=== PATIENT | female | born 1985 ===

== ENCOUNTER 2016-11-06 17:25 | Inpatient (IN) ==
[2016-11-06] MEDS ORDERED: ONDANSETRON 4 MG/2 ML VIAL IV PRN (18:46)
[2016-11-06] MEDS: oxyCODONE/ACETAMINOPHEN 5-325 MG TABLET PO PRN (19:02)
[2016-11-06] MEDS: PIPERACILLIN/TAZOBACTAM 3,375 MG in SODIUM CHLORIDE 0.9% 100 ML IV SCH (19:02)
[2016-11-06 20:37] LABS: Basophils % 0.4 % (0.0-0.8); Eosinophils # 0.2 10*3/uL (0.0-0.87); Hematocrit 33.4 VOL% (35.7-47.0); Hemoglobin 11.3 GM/DL (12.0-16.0); Immature Granulocytes % 0.8 %; Immature Granulocytes Absolute 0.06 #; Lymphocytes # 2.2 10*3/uL (1.4-4.0); Lymphocytes % 27.7 % (21.3-54.2); Mean Corpuscular HGB Conc 33.8 GM/DL (32-36); Mean Corpuscular Hemoglobin 31 PG (27-34); Mean Corpuscular Volume 90.8 FL (87-102); Mean Platelet Volume 9.6 FL (9.6-12.0); Monocytes # 0.6 10*3/uL (0.11-0.8); Neutrophils # 4.8 10*3/uL (1.4-7.4); Neutrophils % 61.1 % (38.7-73.9); Platelet Count 331 T/CUMM (130-400); Red Blood Count 3.68 MC/CUMM (3.8-5.5); Red Cell Distribution Width 13.3 % (9.3-17.3); White Blood Count 7.8 T/CUMM (4-12)
[2016-11-06 21:01] LABS: Calcium 8.1 MG/DL (8.5-10.1); Osmolality,Calculated 275.7 MOS/KG (273-304); Potassium 4.2 MMOL/L (3.5-5.1)
[2016-11-06] MEDS: MEPERIDINE 50 MG/1 ML VIAL IM PRN (21:21)
[2016-11-07 00:10] LABS: Apearance,Urine CLEAR (Clear); Bacteria,Urine Occasional /HPF (Few); Bilirubin,Urine Negative (Negative); Blood, Urine Small mg/dL (Negative); Glucose,Urine (UA) Negative (Negative); Ketones,Urine Negative (Negative); Mucus,Urine Occasional /LPF (Occasional); Nitrite,Urine Negative (Negative); Protein,Urine Negative; RBC,Urine 1 /HPF (0-4); Squamous Epithelial Cell,Urine Occasional /HPF (0-10); Urine Color Straw (Yellow); Urine Specific Gravity 1.008 (1.001-1.035); Urine Urobilinogen < 2.0 EU/DL (0.2-1.0); WBC,Urine 2 /HPF (0-6)
[2016-11-07] MEDS: PIPERACILLIN/TAZOBACTAM 3,375 MG in SODIUM CHLORIDE 0.9% 100 ML IV SCH ×3 (03:26→18:31)
[2016-11-07] MEDS: oxyCODONE/ACETAMINOPHEN 5-325 MG TABLET PO PRN ×3 (07:33→18:30)
--- NOTE | 2016-11-07 09:18 | OB/GYN History & Physical ---
History of Present Illness Chief complaint: Left labial abscess History of present illness: Ms. Mensah is a 31 year old female Multi parous female who presents with a week history of increasing swelling of the left labia. She presented to the office with severe pelvic pain and discomfort and no evidence of any discharge. She stated she was seen at the [facility] placed on p.o. antibiotics but did not get any relief. At this point time she is without fever chills, No evidence of any discharge or drainage, but severe perineal pain. In light of these findings she was admitted for IV antibiotics with the possibility of an I&D at a later date. Home Medications Medication Instructions Recorded Confirmed Type No Known Home Medications [No 11/06/16 11/06/16 History Known Home Medications] Allergies Allergy/AdvReac Type Severity Reaction Status Date / Time [facility] Allergy Unknown/Unable Verified 11/06/16 18:25 to obtain Medical,Surgical,& Family Hx - Surgical History Thoracic Surgeries: Patient denies;: Organ Transplant - Social History Smoking Status: Never smoker Frequency of Alcohol Use: None Type of Drug Use: None Exam [employer] - Constitutional Vitals: Vital Signs Temp Pulse Resp BP Pulse Ox 11/07/16 07:04 97.9 F 60 18 101/56 98 11/07/16 06:10 18 11/07/16 04:30 97.9 F 59 L 16 105/63 95 11/07/16 00:05 97.9 F 66 16 103/57 95 11/06/16 19:35 97.9 F 61 16 115/62 91 L 11/06/16 18:17 97.8 F 62 16 106/56 98 General appearance: mild distress - Antepartum / Post Antepartum Exam Vulva: left: normal (Left edematous swollen indurated left labia) - Head Head exam: Present: normal inspection - Eye Eye exam: Present: EOMI Pupils: Present: VINCENT - ENT ENT exam: Present: normal exam - Neck Neck exam: Present: normal inspection - Respiratory Respiratory exam: Present: clear to auscultation bilaterally - Breast Breasts: as per HPI, mastodynia - Cardiovascular Cardiovascular exam: Present: regular rate and rhythm - GI/Abdominal GI/Abdominal exam: Present: normal bowel sounds, soft - Extremities Exam Extremities exam: Present: normal inspection - Back Exam Back exam: Present: normal inspection - Neurological Exam Neurological exam: Present: alert, oriented X3 - Psychiatric Psychiatric exam: Present: normal affect - Skin Skin exam: Present: normal color Assessment and Plan (1) Labial abscess Status: Acute Assessment and plan: IV antibiotics using Zosyn, wait until there is an area of small amount of drainage for culture, possibility of I&D in the a.m. Current Visit: Yes Results - Labs CBC & BMP: 11/06/16 19:58 11/06/16 19:58
[2016-11-07] MEDS: MEPERIDINE 50 MG/1 ML VIAL IM PRN (20:35)
[2016-11-08] MEDS: PIPERACILLIN/TAZOBACTAM 3,375 MG in SODIUM CHLORIDE 0.9% 100 ML IV SCH ×3 (03:40→20:00)
[2016-11-08] MEDS: oxyCODONE/ACETAMINOPHEN 5-325 MG TABLET PO PRN ×4 (03:44→23:46)
[2016-11-08] MEDS ORDERED: LIDOCAINE 2% 5 ML VIAL ONE (10:30)
[2016-11-08] MEDS ORDERED: ONDANSETRON 4 MG/2 ML VIAL ONE ×2 (10:30→11:14)
[2016-11-08] MEDS ORDERED: PROPOFOL 200 MG/20 ML VIAL IV ONE ×2 (10:30→11:13)
[2016-11-08] MEDS ORDERED: ceFAZolin 1,000 MG VIAL ONE (10:47)
--- NOTE | 2016-11-08 11:01 | Operative Note ---
Date of procedure: 11/08/16 Procedure: Preoperative diagnosis: [] Left labial abscess Postoperative diagnosis: Same Anesthesia:[] General Estimated blood loss: [] Negligible Surgeon: Dr. Mims Findings: [] Indurated fluctuant left labial abscess Complications: None Procedure: I&D of labial abscess Patient was taken to the operation demonstration general anesthesia placed supine position perineum was prepped and draped and prepped made usual manner for major surgery. Small incision was made on the cephalad portion of the labia. Pustular thickened material was removed and expressed from the labia. Hemostat was then used to break up the loculated pustular material. Using a syringe filled with Ancef this was irrigated into the small opening. Cultures was obtained prior to performing this procedure. Quarter inch iodoform gauze was then placed inside the opening of the labial abscess. She tolerated this well with the next pain at room to recovery in stable condition [] Surgeon / Physician: Patrick Mims Results - Labs CBC & BMP: 11/06/16 19:58 11/06/16 19:58 Discharge Plan - Discharge Medications No Action No Known Home Medications [No Known Home Medications] - Follow Up or Referral - Forms/Instructions
[2016-11-08] MEDS ORDERED: fentaNYL 100 MCG/2 ML VIAL ONE (11:14)
[2016-11-08] MEDS ORDERED: SEVOFLURANE 1 UNIT/15 MINUTE INH ONE (11:14)
[2016-11-08] MEDS ORDERED: MIDAZOLAM 2 MG/2 ML VIAL ONE (11:14)
[2016-11-08] MEDS ORDERED: ONDANSETRON 4 MG/2 ML VIAL IV PRN (11:17)
[2016-11-08] MEDS: HYDROmorphone 2 MG/1 ML VIAL IV PRN ×4 (11:24→11:51)
[2016-11-08 11:27] LABS: Basophils % 0.4 % (0.0-0.8); Eosinophils # 0.1 10*3/uL (0.0-0.87); Eosinophils % 1.8 % (0.00-10.9); Hematocrit 34.3 VOL% (35.7-47.0); Hemoglobin 11.6 GM/DL (12.0-16.0); Immature Granulocytes % 0.6 %; Immature Granulocytes Absolute 0.03 #; Lymphocytes # 1.9 10*3/uL (1.4-4.0); Lymphocytes % 34.2 % (21.3-54.2); Mean Corpuscular HGB Conc 33.8 GM/DL (32-36); Mean Corpuscular Hemoglobin 31 PG (27-34); Mean Corpuscular Volume 91.2 FL (87-102); Mean Platelet Volume 9.3 FL (9.6-12.0); Monocytes # 0.4 10*3/uL (0.11-0.8); Monocytes % 7.8 % (1.7-12.7); Neutrophils % 55.2 % (38.7-73.9); Platelet Count 323 T/CUMM (130-400); Red Blood Count 3.76 MC/CUMM (3.8-5.5); Red Cell Distribution Width 13.2 % (9.3-17.3); White Blood Count 5.4 T/CUMM (4-12)
[2016-11-08] MEDS ORDERED: LACTATED RINGERS 1,000 ML IV SCH (11:30)
--- NOTE | 2016-11-08 15:05 | Anesthesia Post-Op ---
Anesthesia Post OP - Post Ansesthetic Evaluation Patient seen in post op: Yes Resp: within normal limits CV: within normal limits Mental: within normal limits Temp: within normal limits Cdva-Ar-Pjodcodnb: within normal limits Nausea and Vomiting: within normal limits Pain: within normal limits
[2016-11-09] MEDS: PIPERACILLIN/TAZOBACTAM 3,375 MG in SODIUM CHLORIDE 0.9% 100 ML IV SCH ×2 (03:25→11:38)
[2016-11-09] MEDS: oxyCODONE/ACETAMINOPHEN 5-325 MG TABLET PO PRN ×2 (04:18→09:31)
[2016-11-09 05:40] LABS: Basophils % 0.7 % (0.0-0.8); Eosinophils # 0.2 10*3/uL (0.0-0.87); Eosinophils % 2.5 % (0.00-10.9); Hematocrit 33.4 VOL% (35.7-47.0); Hemoglobin 11.3 GM/DL (12.0-16.0); Immature Granulocytes % 0.3 %; Immature Granulocytes Absolute 0.02 #; Lymphocytes # 2.3 10*3/uL (1.4-4.0); Lymphocytes % 38.1 % (21.3-54.2); Mean Corpuscular HGB Conc 33.8 GM/DL (32-36); Mean Corpuscular Hemoglobin 31 PG (27-34); Mean Corpuscular Volume 91.8 FL (87-102); Mean Platelet Volume 9.5 FL (9.6-12.0); Monocytes # 0.5 10*3/uL (0.11-0.8); Neutrophils # 3.1 10*3/uL (1.4-7.4); Neutrophils % 50.4 % (38.7-73.9); Platelet Count 298 T/CUMM (130-400); Red Blood Count 3.64 MC/CUMM (3.8-5.5); Red Cell Distribution Width 13.2 % (9.3-17.3); White Blood Count 6.1 T/CUMM (4-12)
[2016-11-09] MEDS: MEPERIDINE 50 MG/1 ML VIAL IM PRN (11:57)
--- NOTE | 2016-11-09 12:31 | Discharge Summary ---
Hospital Course - Hospital Course Hospital Course: Patient admitted on 07 November with a large left labial abscess. She was placed on IV antibiotics and ice packs for 24 hours. Small amount of drainage at the head of the cephalic portion of the labia on the left side. On November 08 she was taken to surgery where a small incision was made this area was irrigated with Ancef and the loculated areas of abscess were then broken up this area was drained iodoform gauze was placed inside. 24 hours as patient is ambulating well voicing desire to be discharged. The gauze was removed she will be discharged and with antibiotics and also continue with sits baths while she is at home. She returned back to her office in 2 weeks Diagnosis - Discharge Diagnosis (1) Labial abscess Status: Acute Discharge Plan - Discharge Data Disposition: Disch To Home/Self Care Condition at Discharge: Stable Discharge Diet: advance to your usual diet Activity: increase activity as tolerated Hygiene: may shower, other (Sitz baths) Weight Bearing at Discharge: full weight bearing Driving: no restrictions Contact your physician if you experience:: fever over 101, Bleeding - Discharge Medications New oxyCODONE/ACETAMINOPHEN 5-325 [Percocet 5-325] 1 tablet PO Q6H #30 tablet cephALEXin [Keflex] 500 mg PO Q6HR #20 capsule - Follow Up or Referral Follow Up: Patrick Mims MD [Physician] - 2 Weeks - Forms/Instructions Exam - Constitutional Vitals: Period Temp Pulse Resp BP Sys/Keita Pulse Ox Last 24 Hr 96.9 F-98.2 F 50-78 16-20 93-132/54-86 94-99 Discharge Results Procedures and tests throughout hospitalization: Pending Orders 11/08/16 Abscess Culture Routine Anaerobic Culture Routine Labs on day of discharge: Labs from last 24 hours 11/09/16 05:18 WBC 6.1 RBC 3.64 L Hgb 11.3 L Hct 33.4 L MCV 91.8 MCH 31 MCHC 33.8 RDW 13.2 Plt Count 298 MPV 9.5 L Neut % (Auto) 50.4 Lymph % (Auto) 38.1 [place] % (Auto) 8.0 Eos % (Auto) 2.5 Baso % (Auto) 0.7 Neut # (Auto) 3.1 Lymph # (Auto) 2.3 [place] # (Auto) 0.5 Eos # (Auto) 0.2 Baso # (Auto) 0.0 Immature Gran % 0.3 Nucleated RBC % 0.0 Immature Gran # 0.02 Nucleated RBCs # 0.00 Immature Plt Fraction 0.0 Preliminary micro results at discharge 11/08/16 Unknown Abscess Culture - Preliminary Groin - Left Gram Positive Cocci DS: Provider Date of admission: 11/06/16 17:45 Primary care physician: Mark Mendoza MD Attending physician on admission: Patrick Mims MD Discharging clinician: Patrick Mims MD
[2016-11-09 16:00] VITALS: BP 115/71
== END 2016-11-09 18:25 | disposition home or self-care (01) | DRG 747 ==
LOC: N.3E 17:45
PROVIDERS: ADMIT Obstetrics & Gynecology; ATTEND Obstetrics & Gynecology

== ENCOUNTER 2017-11-28 07:18 | Inpatient (IN) ==
[2017-11-28] MEDS ORDERED: ONDANSETRON 4 MG/2 ML VIAL IV PRN (08:03)
[2017-11-28] MEDS ORDERED: LACTATED RINGERS 1,000 ML IV ONE (08:05)
[2017-11-28] MEDS: OXYTOCIN/LR 20 UNIT/1,000 ML BAG IV SCH ×2 (08:19→17:52)
[2017-11-28 08:43] LABS: Basophils % 0.1 % (0.0-0.8); Eosinophils % 0.4 % (0.00-10.9); Hematocrit 28.5 VOL% (35.7-47.0); Hemoglobin 9.5 GM/DL (12.0-16.0); Immature Granulocytes % 0.5 %; Immature Granulocytes Absolute 0.04 #; Lymphocytes # 1.2 10*3/uL (1.4-4.0); Lymphocytes % 14.8 % (21.3-54.2); Mean Corpuscular HGB Conc 33.3 GM/DL (32-36); Mean Corpuscular Hemoglobin 30 PG (27-34); Mean Corpuscular Volume 88.8 FL (87-102); Mean Platelet Volume 10.4 FL (9.6-12.0); Monocytes # 0.5 10*3/uL (0.11-0.8); Monocytes % 6.3 % (1.7-12.7); Neutrophils # 6.2 10*3/uL (1.4-7.4); Neutrophils % 77.9 % (38.7-73.9); Platelet Count 241 T/CUMM (130-400); Red Blood Count 3.21 MC/CUMM (3.8-5.5); Red Cell Distribution Width 14.6 % (9.3-17.3); White Blood Count 7.9 T/CUMM (4-12)
[2017-11-28 08:58] LABS: INR 0.9; PT Patient Result 9.8 SECS; Partial Thromboplastin Time 32.1 SECS (0-40)
[2017-11-28] MEDS: hydrALAZINE 20 MG/1 ML VIAL IV PRN ×2 (09:08→09:17)
[2017-11-28 09:10] LABS: Alanine Aminotransferase 12 U/L (13-56); Albumin 2.1 G/DL (3.4-5.0); Alkaline Phosphatase 162 U/L (45-117); Aspartate Amino Transferase 12 U/L (0-37); Bilirubin,Total < 0.39 MG/DL (0.2-1.0); Blood Urea Nitrogen 8 MG/DL (7-18); Calcium 8.1 MG/DL (8.5-10.1); Glucose 70 MG/DL (74-106); Sodium 139 MMOL/L (136-145); Total Protein 6.2 G/DL (6.4-8.3)
[2017-11-28 09:11] LABS: Osmolality,Calculated 272.5 MOS/KG (273-304); Potassium 3.7 MMOL/L (3.5-5.1)
[2017-11-28 09:29] LABS: Hepatitis B Surface Ag Quant 0.21 Index; Hepatitis B Surface Ag Result Negative (Negative)
[2017-11-28] MEDS ORDERED: ePHEDrine 50 MG/ML AMP IV PRN (09:31)
[2017-11-28] MEDS ORDERED: hydrOXYzine HCL 25 MG/1 ML VIAL IM PRN (09:31)
[2017-11-28] MEDS ORDERED: ONDANSETRON 4 MG/2 ML VIAL IV ONE (09:31)
[2017-11-28] MEDS ORDERED: FAMOTIDINE 20 MG/2 ML VIAL IV ONE (09:31)
[2017-11-28] MEDS ORDERED: diphenhydrAMINE 50 MG/1 ML VIAL IV PRN ×2 (09:31)
[2017-11-28] MEDS ORDERED: NALOXONE 0.4 MG/ML VIAL IV PRN (09:31)
[2017-11-28] MEDS ORDERED: PROMETHAZINE 25 MG/1 ML VIAL IM ONE (09:31)
[2017-11-28] MEDS ORDERED: CITRIC ACID/SODIUM CITRATE 30 ML UDCUP PO ONE (09:31)
[2017-11-28] MEDS: LACTATED RINGERS 1,000 ML IV SCH ×2 (09:55→13:14)
[2017-11-28] MEDS ORDERED: fentaNYL 2 MCG/ROPIV 0.2% EPID 100 ML EPIDURAL SCH (10:00)
[2017-11-28] MEDS ORDERED: LABETALOL 100 MG TABLET PO SCH (10:30)
[2017-11-28 13:02] LABS: Apearance,Urine CLEAR (Clear); Bacteria,Urine Occasional /HPF (Few); Bilirubin,Urine Negative (Negative); Blood, Urine Negative (Negative); Glucose,Urine (UA) Negative (Negative); Ketones,Urine 5 mg/dL (Negative); Nitrite,Urine Negative (Negative); Protein,Urine Negative; RBC,Urine 1 /HPF (0-4); Squamous Epithelial Cell,Urine Occasional /HPF (0-10); Urine Color Straw (Yellow); Urine Specific Gravity 1.004 (1.001-1.035); Urine Urobilinogen < 2.0 EU/DL (0.2-1.0); WBC,Urine 1 /HPF (0-6)
[2017-11-28] MEDS ORDERED: ACETAMINOPHEN 500 MG TABLET PO PRN (13:09)
[2017-11-28] MEDS ORDERED: LIDOCAINE 1% 50 ML VIAL ONE ×2 (14:10→15:39)
[2017-11-28] MEDS ORDERED: CARBOPROST TROMETHAMINE 250 MCG/ML AMP IM ONE (15:40)
[2017-11-28] MEDS ORDERED: BUTORPHANOL 2 MG/ML VIAL ONE (15:40)
[2017-11-28] MEDS ORDERED: miSOPROStol 200 MCG TABLET ONE (15:40)
[2017-11-28] MEDS ORDERED: METHYLERGONOVINE 0.2 MG/1 ML AMP ONE (15:40)
[2017-11-28] MEDS ORDERED: OXYTOCIN 10 UNIT/ML VIAL ONE (16:14)
[2017-11-28] MEDS ORDERED: RHO(D) IMMUNE GLOBULIN 300 MCG SYRINGE IM ONE (18:43)
[2017-11-28] MEDS ORDERED: oxyCODONE/ACETAMINOPHEN 5-325 MG TABLET PO PRN (18:43)
[2017-11-28] MEDS ORDERED: ACETAMINOPHEN/CODEINE 300-30 MG TABLET PO PRN (18:43)
[2017-11-28] MEDS ORDERED: LANOLIN 50% CREAM 0.3 OZ TUBE TOP PRN (18:43)
[2017-11-28] MEDS ORDERED: BISACODYL 10 MG SUPP RECTAL PRN (18:43)
[2017-11-28] MEDS ORDERED: HYDROCORTISONE 2.5% RECTAL CREAM 30 GM TUBE TOP PRN (18:43)
[2017-11-28] MEDS ORDERED: WITCH HAZEL PADS 100/JAR TOP PRN (18:43)
[2017-11-28] MEDS ORDERED: ACETAMINOPHEN 325 MG TABLET PO PRN (18:43)
[2017-11-28] MEDS ORDERED: DIPH/TET/ACEL PERT BOOSTER VACCINE 0.5 ML VIAL IM ONE (18:43)
[2017-11-28] MEDS ORDERED: BENZOCAINE 20%/MENTHOL 0.5% SPRAY 56 GM CAN TOP PRN (18:43)
[2017-11-28] MEDS ORDERED: MEASLES/MUMPS/RUBELLA VACCINE 0.5 ML VIAL SUBCUT ONE (18:43)
[2017-11-28] MEDS: IBUPROFEN 800 MG TABLET PO PRN (19:58)
[2017-11-28] MEDS: DOCUSATE SODIUM 100 MG CAPSULE PO SCH (20:00)
[2017-11-28] MEDS: FERROUS SULFATE 325 MG TABLET PO SCH (21:19)
[2017-11-29] MEDS ORDERED: ONDANSETRON 4 MG/2 ML VIAL ONE (00:41)
[2017-11-29] MEDS ORDERED: ONDANSETRON 4 MG/2 ML VIAL IV PRN (00:41)
[2017-11-29 06:51] LABS: Basophils % 0.1 % (0.0-0.8); Eosinophils % 0.1 % (0.00-10.9); Hematocrit 20.6 VOL% (35.7-47.0); Immature Granulocytes % 0.6 %; Immature Granulocytes Absolute 0.05 #; Lymphocytes # 1.6 10*3/uL (1.4-4.0); Lymphocytes % 17.5 % (21.3-54.2); Mean Corpuscular Hemoglobin 29 PG (27-34); Mean Corpuscular Volume 86.6 FL (87-102); Mean Platelet Volume 11.3 FL (9.6-12.0); Monocytes # 0.6 10*3/uL (0.11-0.8); Monocytes % 6.1 % (1.7-12.7); NRBC # 0.02 10*3/uL; Neutrophils # 6.8 10*3/uL (1.4-7.4); Neutrophils % 75.6 % (38.7-73.9); Red Cell Distribution Width 14.9 % (9.3-17.3)
[2017-11-29 06:54] LABS: Platelet Count 161 T/CUMM (130-400); Red Blood Count 2.38 MC/CUMM (3.8-5.5)
[2017-11-29] MEDS: DOCUSATE SODIUM 100 MG CAPSULE PO SCH ×2 (09:44→21:27)
[2017-11-29] MEDS: FERROUS SULFATE 325 MG TABLET PO SCH ×2 (09:45→21:27)
[2017-11-29] MEDS: IBUPROFEN 800 MG TABLET PO PRN (10:41)
[2017-11-29] MEDS: oxyCODONE/ACETAMINOPHEN 5-325 MG TABLET PO PRN ×2 (15:56→23:46)
[2017-11-30] MEDS ORDERED: oxyCODONE/ACETAMINOPHEN 5-325 MG TABLET PO PRN (04:01)
[2017-11-30] MEDS: oxyCODONE/ACETAMINOPHEN 5-325 MG TABLET PO PRN ×2 (04:08→11:31)
[2017-11-30] MEDS: FERROUS SULFATE 325 MG TABLET PO SCH (08:46)
[2017-11-30] MEDS: DOCUSATE SODIUM 100 MG CAPSULE PO SCH (08:46)
[2017-11-30 12:10] VITALS: BP 128/76
== END 2017-11-30 14:15 | disposition home or self-care (01) | DRG 542 ==
LOC: N.LD 07:18 → N.OB 18:30
PROVIDERS: ADMIT Obstetrics & Gynecology; ATTEND Obstetrics & Gynecology